=== PATIENT | male | born 1965 | race Hispanic/Latino ===

== ENCOUNTER 2017-05-31 07:21 | Emergency (ER) | payer MEDICARE ==
[2017-05-31 07:22] VITALS: BMI 21.6
[2017-05-31 07:27] VITALS: BP 102/69; PULSE 93; RESP 18; TEMP 97.9; O2SAT 97
== END 2017-05-31 07:31 | disposition left against medical advice (07) ==
LOC: C.ER 07:21
DX: Z02.89 Encounter for other administrative examinations (principal); M25.561 Pain in right knee